=== PATIENT | male | born 1980 | race Caucasian/White ===

== ENCOUNTER 2018-11-22 21:12 | Emergency (ER) | payer OTHER ==
[2018-11-22] MEDS ORDERED: PROMETHAZINE HCL 25 MG/ML INJ IVP ONE (21:21)
[2018-11-22] MEDS ORDERED: NS 1,000 ML IV ONE ×2 (21:21)
[2018-11-22] MEDS ORDERED: KETOROLAC 30 MG/1 ML SDV IVP ONE (21:21)
--- NOTE | 2018-11-22 21:21 | EDPHY ---
H & P Time Seen by Provider: 11/22/18 21:18 HPI/ROS: HPI: This is a 38-year-old male who presents with Chief Complaint: Right upper quadrant and flank pain Location: Right upper quadrant and right flank Quality: Pain Duration: Several hours Signs and Symptoms: no fever, +nausea, no vomiting, no hematemesis, no blood in stool, no abdominal bloating, no diarrhea, no back pain, no urinary symptoms, no testicular/groin pain, no indigestion, no chest pain, no shortness of breath Timing: Acute, constant Severity: Moderate Context: Patient is from [place], [place], here working and staying at a local hotel presents via EMS for complaints of sudden onset this afternoon around 4:30 p.m. Of subjective fever and sore throat. He went back to his hotel room and tried to drink plenty of fluids. Approximately 1.5 hr ago, he developed right flank pain that radiates to his "belly button." He complains of nausea and urinary frequency but no vomiting, diarrhea, abdominal bloating, chest pain, shortness of breath. History of cholecystectomy. Modifying Factors: None Comment: ROS: A comprehensive 10 system review of systems is otherwise negative aside from elements mentioned in the history of present illness. MEDICAL/SURGICAL/SOCIAL HISTORY: Medical history: Generally healthy. Surgical history: Cholecystectomy, hiatal hernia repair Social history: Employed. Admits social alcohol use. Family history noncontributory. CONSTITUTIONAL: Talkative well-appearing overweight white male, awake and alert , no obvious distress HEENT: Atraumatic and normocephalic, PERRL, EOMI. Nares patent; no rhinorrhea; no nasal mucosal edema. Tympanic membranes clear. Oropharynx clear, tonsils 2 + with erythema; no exudate; uvula midline and dry oral mucosa. Airway patent. No lymphadenopathy. No meningismus. Cardiovascular: Normal S1/S2, regular rate, regular rhythm, without murmur rub or gallop. PULMONARY/CHEST: Symmetrical and nontender. Clear to auscultation bilaterally. Good air movement. No accessory muscle usage. ABDOMEN: Soft, nondistended, moderate right flank tenderness, mild right lower quadrant tenderness,, no rebound, no guarding, no peritoneal signs, no masses or organomegaly. No CVAT. EXTREMITIES: 2/2 pulses, strength 5/5, no deformities, no clubbing, no cyanosis or edema. NEUROLOGICAL: no focal neuro deficits. GCS 15. Speech fluent. SKIN: Warm and dry, no erythema. no rash. Good capillary refill. Source: Patient Exam Limitations: No limitations Constitutional: Initial Vital Signs Temperature (C) 38.2 C 11/22/18 21:18 Heart Rate 95 11/22/18 21:18 Respiratory Rate 18 11/22/18 21:18 Blood Pressure 124/71 H 11/22/18 21:18 O2 Sat (%) 96 11/22/18 21:18 O2 Delivery Mode Room Air Allergies/Adverse Reactions: No Known Allergies Allergy (Unverified 11/22/18 21:17) Home Medications: Medication Instructions Recorded NK [No Known Home Meds] 11/22/18 Medical Decision Making - Diagnostics Imaging Results: Imaging Impressions Abdomen/Pelvis CT 11/22/18 21:22 Impression: Status post cholecystectomy. No evidence for hydronephrosis or nephrolithiasis. No CT findings for appendicitis. Moderate right-sided constipation. Results called and discussed with Ria Duncan at 11/22/2018 21:55. Attention: This CT examination is specifically designed to evaluate patients who are clinically suspected of having acute obstructive uropathy. This examination does not use radiographic contrast, and as such, provides only a limited evaluation of the abdomen, pelvis and retroperitoneum. If there is further clinical suspicion for pathological conditions other than obstructive uropathy, a complete CT evaluation of the abdomen and pelvis utilizing intravenous, oral, and rectal contrast should be considered. ED Course/Re-evaluation: Vital signs reviewed and stable upon arrival. No systemic signs. IV access, laboratory studies, strep test, urinalysis and CT abdomen and pelvis scan without contrast ordered Given 2 L normal saline, IV Toradol 30 mg and IV promethazine 12.5 mg 2153: Called by radiologist, Dr. Quinn, who reports CT abdomen and pelvis scan shows no signs of appendicitis, no stone, no hydronephrosis, no obstruction , no diverticulitis. Moderate constipation on the right upper quadrant. Status post cholecystectomy. 5: Laboratory studies reviewed. No signs of leukocytosis/anemia/platelet dysfunction/AVERY/electrolyte imbalance/pancreatitis. + mildly elevated LFTs- denies regular alcohol use. Rapid strep negative. 2: Urinalysis unremarkable. 5: Reassessed patient who reports adequate relief of pain. Advised MiraLax daily as needed for constipation, push fluids, increase fiber in diet. Patient will have an outpatient ultrasound his abdomen performed due to elevated liver enzymes. This patient was seen under the supervision of my secondary supervising physician. I evaluated and cared for this patient independently. Differential Diagnosis: Flank pain including but not limited to musculoskeletal causes, kidney stone, pyelonephritis, shingles, and intra-abdominal causes such as diverticulitis and appendicitis. - Data Points Laboratory Results: Laboratory Results 11/22/18 21:28 11/22/18 21:28 11/22/18 11/22/18 11/22/18 Unknown 21:50 21:28 WBC RBC Hgb Hct MCV MCH MCHC RDW Plt Count MPV Neut % (Auto) Lymph % (Auto) [place] % (Auto) Eos % (Auto) Baso % (Auto) Nucleat RBC Rel Count Absolute Neuts (auto) Absolute Lymphs (auto) Absolute Monos (auto) Absolute Eos (auto) Absolute Basos (auto) Absolute Nucleated RBC Immature Gran % Immature Gran # Sodium Potassium Chloride Carbon Dioxide Anion Gap BUN Creatinine Estimated GFR Glucose Calcium Total Bilirubin Conjugated Bilirubin Unconjugated Bilirubin AST ALT Alkaline Phosphatase Total Protein Albumin Lipase Urine Color PALE YELLOW Urine Appearance CLEAR Urine pH 6.0 (5.0-7.5) Ur Specific [place] 1.003 (1.002-1.030) Urine Protein NEGATIVE (NEGATIVE) Urine Ketones NEGATIVE (NEGATIVE) Urine Blood NEGATIVE (NEGATIVE) Urine Nitrate NEGATIVE (NEGATIVE) Urine Bilirubin NEGATIVE (NEGATIVE) Urine Urobilinogen NEGATIVE EU EU (0.2-1.0) Ur Leukocyte Esterase NEGATIVE (NEGATIVE) Urine Glucose NEGATIVE (NEGATIVE) Group A Strep Screen NEGATIVE (NEGATIVE) Group A Strep DNA Pending 11/22/18 11/22/18 21:28 21:28 WBC 7.71 10^3/uL 10^3/uL (3.80-9.50) RBC 4.90 10^6/uL 10^6/uL (4.40-6.38) Hgb 14.9 g/dL g/dL (13.7-17.5) Hct 41.2 % % (40.0-51.0) MCV 84.1 fL fL (81.5-99.8) MCH 30.4 pg pg (27.9-34.1) MCHC 36.2 g/dL g/dL (32.4-36.7) RDW 12.6 % % (11.5-15.2) Plt Count 227 10^3/uL 10^3/uL (150-400) MPV 11.0 fL fL (8.7-11.7) Neut % (Auto) 81.7 % H % (39.3-74.2) Lymph % (Auto) 11.7 % L % (15.0-45.0) [place] % (Auto) 5.1 % % (4.5-13.0) Eos % (Auto) 0.8 % % (0.6-7.6) Baso % (Auto) 0.3 % % (0.3-1.7) Nucleat RBC Rel Count 0.0 % % (0.0-0.2) Absolute Neuts (auto) 6.31 10^3/uL 10^3/uL (1.70-6.50) Absolute Lymphs (auto) 0.90 10^3/uL L 10^3/uL (1.00-3.00) Absolute Monos (auto) 0.39 10^3/uL 10^3/uL (0.30-0.80) Absolute Eos (auto) 0.06 10^3/uL 10^3/uL (0.03-0.40) Absolute Basos (auto) 0.02 10^3/uL 10^3/uL (0.02-0.10) Absolute Nucleated RBC 0.00 10^3/uL 10^3/uL (0-0.01) Immature Gran % 0.4 % % (0.0-1.1) Immature Gran # 0.03 10^3/uL 10^3/uL (0.00-0.10) Sodium 133 mEq/L L mEq/L (135-145) Potassium 3.8 mEq/L mEq/L (3.5-5.2) Chloride 103 mEq/L mEq/L (97-110) Carbon Dioxide 18 mEq/l L mEq/l (22-31) Anion Gap 12 mEq/L mEq/L (6-14) BUN 15 mg/dL mg/dL (7-23) Creatinine 1.1 mg/dL mg/dL (0.7-1.3) Estimated GFR > 60 Glucose 162 mg/dL H mg/dL (70-100) Calcium 9.7 mg/dL mg/dL (8.5-10.4) Total Bilirubin 1.4 mg/dL mg/dL (0.1-1.4) Conjugated Bilirubin 0.5 mg/dL mg/dL (0.0-0.5) Unconjugated Bilirubin 0.9 mg/dL mg/dL (0.0-1.1) AST 122 IU/L H IU/L (17-59) ALT 190 IU/L H IU/L (21-72) Alkaline Phosphatase 184 IU/L H IU/L (38-126) Total Protein 6.9 g/dL g/dL (6.3-8.2) Albumin 4.4 g/dL g/dL (3.5-5.0) Lipase 156 IU/L IU/L (23-300) Urine Color Urine Appearance Urine pH Ur Specific Saltese Urine Protein Urine Ketones Urine Blood Urine Nitrate Urine Bilirubin Urine Urobilinogen Ur Leukocyte Esterase Urine Glucose Group A Strep Screen Group A Strep DNA Medications Given: Discontinued Medications Sodium Chloride (Ns) 1,000 mls @ 0 mls/hr IV EDNOW ONE; Wide Open PRN Reason: Protocol Stop: 11/22/18 21:22 Last Admin: 11/22/18 21:39 Dose: 1,000 mls Sodium Chloride (Ns) 1,000 mls @ 0 mls/hr IV EDNOW ONE; Wide Open PRN Reason: Protocol Stop: 11/22/18 21:22 Last Admin: 11/22/18 21:39 Dose: 1,000 mls Ketorolac Tromethamine (Toradol) 30 mg IVP EDNOW ONE Stop: 11/22/18 21:22 Last Admin: 11/22/18 21:40 Dose: 30 mg Promethazine HCl (Phenergan) 12.5 mg IVP EDNOW ONE Stop: 11/22/18 21:22 Last Admin: 11/22/18 21:40 Dose: 12.5 mg Departure - Departure Disposition: Home, Routine, Self-Care Clinical Impression: Constipation by delayed colonic transit, Elevated liver enzymes Condition: Good Instructions: Constipation (ED), Non-Alcoholic Fatty Liver Disease (ED) Additional Instructions: Rest as much as possible until you are feeling better. Consume a minimum of 8-10 glasses of water or electrolyte fluid replacement drinks that include Gatorade, Powerade, Pedialyte. Eat a bland diet for the next 48 hours and then slowly advance as tolerated to diet high in fiber including fruits and vegetables. Take Tylenol 650 mg every 4 hr and/or ibuprofen 600 mg every 8 hr with food as needed for pain, fever. Take MiraLax [id number] daily as needed for constipation. Follow-up with primary care provider in the next 6-8 weeks to obtain outpatient abdominal ultrasound to evaluate mildly elevated liver enzymes. Referrals: [facility],. [Clinic] - As per Instructions Stand Alone Forms: Work Excuse
[2018-11-22 21:33] LABS: PLATELET COUNT 227 10^3/uL (150-400)
[2018-11-22 22:31] VITALS: BP 123/65
== END 2018-11-22 22:35 | disposition home or self-care (01) ==
DX: K59.01 Slow transit constipation (principal); R74.8 Abnormal levels of other serum enzymes; J02.9 Acute pharyngitis, unspecified; R50.9 Fever, unspecified; R35.0 Frequency of micturition; E86.9 Volume depletion, unspecified; Z90.49 Acquired absence of other specified parts of digestive tract
CPT/HCPCS: 96374; J1885; J2550